=== PATIENT | male | born 2000 | race Hispanic/Latino ===

== ENCOUNTER 2023-09-13 19:20 | Emergency (ER) | payer OTHER, SELFPAY ==
[2023-09-13 19:31] VITALS: BP 139/85; PULSE 112; RESP 20; TEMP 36.8; O2SAT 98; BMI 31.8
--- NOTE | 2023-09-13 19:50 | ED_ITS ---
HPI - Wound/Laceration General Chief Complaint: Wound/Laceration Stated Complaint: rt side to center back pain Time Seen by Provider: 09/13/23 19:23 Source: patient Mode of arrival: Ambulatory History of Present Illness HPI narrative: 23-year-old male with history of pilonidal cyst presents by private vehicle from home for pain surrounding his previous surgical site as well as what he believes is a growing abscess in his buttock. Patient had pilonidal surgery at [facility] in July 2022 as well as a another surgery in December 2022 due to poorly healing suture site. Patient states that he has had pain since his surgery but it became worse over the last 2-3 days. Has also noticed a growing abscess in his left butt cheek over the last 2-3 days. He is concerned that he may have another abscess Related Data Previous Rx's Medication Instructions Recorded doxycycline hyclate 100 mg capsule 100 mg PO BID #14 caps 09/13/23 Allergies Allergy/AdvReac Type Severity Reaction Status Date / Time No Known Drug Allergies Allergy Verified 09/13/23 19:38 Review of Systems Review of Systems Narrative: See HPI Patient History tobacco type: vaping alcohol intake frequency: holidays/special occasions only Substance Use Type: does not use Exam Initial Vital Signs Initial Vital Signs: Vital Signs Temperature 98.3 F 09/13/23 19:31 Pulse Rate 112 H 09/13/23 19:31 Respiratory Rate 20 09/13/23 19:31 Blood Pressure 139/85 09/13/23 19:31 Pulse Oximetry 98 09/13/23 19:31 Oxygen Delivery Method Room Air 09/13/23 19:31 Const: Awake, alert, no acute distress, nontoxic appearing Cardiac: regular rate, regular rhythm RESP: unlabored, clear bilaterally, no wheezing GI: Soft, nontender, nondistended, no rebound, no guarding Back/buttocks: retoucher present, surgical site intact, some overlying induration present. 2 cm fluctuant area on in her left buttock near the gluteal cleft Skin: Warm, Dry, intact, no rashes Neuro: AO x3, CN II-XII grossly intact, moves all extremities Procedures Abscess I/D I&D #1: Side (if applicable): left Sedation/analgesia: other (ativan) Local Anesthetic: lidocaine 1% and with epi Amount of anesthesia used (mL): 5 Technique: incised with #11 blade Packing used?: none Complications: other (No fluid drained, opening sutured closed) Laceration Repair Laceration 1: Site: other (buttock) Side (If applicable): left Size (cm): 2 Description: linear Depth: simple, single layer Local Anesthetic: lidocaine 1% and with epi Skin layer closed with: nylon Skin layer suture size: 4-0 Course Orders Ordered: ED Orders 09/13/23 22:00 CBC Auto Diff [Complete Blood Count AUTO DIFF] Stat CMP [Comprehensive Metabolic Panel] Stat 09/13/23 22:30 CT pelvis w con Stat Discontinued Medications Doxycycline Hyclate (Doxycycline Hyclate 100 Mg Tablet) 100 mg PO NOW ONE Stop: 09/13/23 21:16 Last Admin: 09/13/23 21:23 Dose: 100 mg Documented By: DEMLA Lorazepam (Lorazepam 0.5 Mg Tablet) 2 mg PO NOW ONE Stop: 09/13/23 19:50 Last Admin: 09/13/23 20:05 Dose: 2 mg Documented By: ISSA Oxycodone HCl (Oxycodone Ir 5 Mg Tablet) 5 mg PO NOW ONE Stop: 09/13/23 19:50 Last Admin: 09/13/23 20:05 Dose: 5 mg Documented By: ISSA Vital Signs Vital signs: Vital Signs - 8 hr 09/13/23 19:31 09/13/23 23:00 09/13/23 23:30 Temperature 98.3 F Pulse Rate 112 H 110 H 112 H Respiratory Rate 20 18 18 Blood Pressure 139/85 117/60 124/80 Pulse Oximetry 98 99 100 Oxygen Delivery Method Room Air Room Air Room Air 09/14/23 00:00 Temperature Pulse Rate 114 H Respiratory Rate 18 Blood Pressure 125/82 Pulse Oximetry 100 Oxygen Delivery Method Room Air MDM - Wound/Laceration Differential Diagnosis Differential diagnosis: Likely laceration, abscess and abrasion Lab Data 09/13/23 22:00 09/13/23 22:00 Labs: Lab Results 09/13/23 Range/Units 22:00 WBC 10.6 (4.5-11.0) X10^3/uL RBC 4.79 (4.5-5.9) X10^6/uL Hgb 14.5 (13.5-17.5) g/dL Hct 41.3 (41-53) % MCV 86.3 (80-100) fL MCH 30.3 (26-34) PG MCHC 35.1 (30-36) % RDW 13.7 (11.6-14.8) % Plt Count 200 (150-400) X10^3/uL Neut % (Auto) 75.2 H (50-75) % Lymph % (Auto) 16.5 L (25-40) % [place] % (Auto) 6.5 (3-14) % Eos % (Auto) 1.2 L (2-4) % Baso % (Auto) 0.6 (0-2) % Neut # (Auto) 7900 H (1246-9106) /uL Lymph # (Auto) 1700 (3563-6428) /uL [place] # (Auto) 700 (0-900) /uL Eos # (Auto) 100 (0-450) /uL Baso # (Auto) 100 (0-100) /uL Sodium 138 (137-145) mmol/L Potassium 3.8 (3.4-5.1) mmol/L Chloride 106 (98-107) mmol/L Carbon Dioxide 26 (22-32) mmol/L BUN 15 (9-20) mg/dL Creatinine 0.86 (0.66-1.25) mg/dL Estimated GFR > 60 (>60) mL/min BUN/Creatinine Ratio 17.4 (6-22) Glucose 107 H (70-100) mg/dL Calcium 9.4 (8.4-10.2) mg/dL Total Bilirubin 1.4 H (0.2-1.3) mg/dL AST 47 (17-59) IU/L ALT 101 H (<50) IU/L Alkaline Phosphatase 58 (38-126) U/L Total Protein 8.0 (6.3-8.2) g/dL Albumin 4.4 (3.5-5.0) g/dL Globulin 3.6 (1.7-4.1) g/dL Albumin/Globulin Ratio 1.2 (1.0-2.8) Imaging Data CT scan - abdomen/pelvis: Radiologist's Impression: PROCEDURE: CT PELVIS W CON INDICATIONS: pilonidal incision inflammation TECHNIQUE: After the administration of intravenous contrast, 5 mm thick sections acquired from the iliac crests to the symphysis. 5 mm coronal and sagittal reformats were acquired. For radiation dose reduction, the following was used: automated exposure control, adjustment of mA and/or kV according to patient size. COMPARISON: None. FINDINGS: Image quality: Diagnostic. PELVIS: Bones: No aggressive osseous abnormality. Soft tissues: Focal subcutaneous edema is seen along the inferior left gluteal cleft without a focal fluid collection seen. Separate mild nonspecific subcutaneous edema is seen overlying the sacrum. Intrapelvic soft tissues demonstrate no acute abnormality. IMPRESSION: 1. Focal subcutaneous edema is seen along the left inferior aspect of the gluteal cleft. No focal fluid collection is seen. No acute intrapelvic abnormality. 2. Nonspecific subcutaneous edema or thickening overlying the sacrum. Approved by: Carlo Gordon M.D. on 09/14/2023 at 0:0 MDM Narrative Medical decision making narrative: Abscess and buttocks as well as pain over the patient's previous pilonidal cyst removal site. The sacral incision is clean, dry, intact. There is induration present without fluctuance. There does appear to be a fluctuant mass in the inner left buttock. Plan to incise and drain the lower abscess. Despite feeling fluctuant on exam there was no expression of fluid from the gluteal swelling. There did not appear to be any abscess or cyst present, and the wound was subsequently closed with sutures per procedure note. Despite receiving pain and anxiety medications patient was tachycardic, and so decision made to order laboratory work and CT imaging. Laboratory work significant for WBC count 10.6 normal electrolytes, T bili 1.4. CT of the pelvis with contrast showed edema of the sacrum and gluteal regions without drainable fluid collection. Uncertain why there would be edema present so long after patient's surgeries, however due to the location and nature of patient's symptoms as well as increased pain plan to treat with antibiotics in case this is an early developing infection. First dose of antibiotics given in the emergency department since pharmacies are currently closed. Patient and his were counseled that they would need to follow up with the patient's original surgeon who performed the pilonidal excision. They state that they would call tomorrow for an appointment for further evaluation. ED return precautions discussed at bedside. Patient expressed understanding of the plan and is in agreement at this time. All questions answered at the time of discharge. Note for work provided Discharge Plan Departure Patient Disposition: Home Clinical Impression: Pilonidal cyst Instructions: DI for Pilonidal Cyst Drainage or Removal Activity Restrictions/Additional Instructions: Sutures will need to be removed in 5-7 days. Keep your wound clean and dry. Unfortunately I was not able to find a drainable fluid collection here today, I highly recommend that you follow up with the surgeon who did your original pilonidal surgery if you continue to experience symptoms. I did feel some irritation around your upper suture site. Added precaution a prescription for antibiotics has been sent to the [facility] in [place]. Take this twice daily for 1 week. Prescriptions: New doxycycline hyclate 100 mg capsule 100 mg PO BID Qty: 14 0RF Referrals: Provider,Aditi LAWSON [Primary Care Provider] - Stand Alone Forms: Patient Portal/API, Work Release Note
[2023-09-13] MEDS: OXYCODONE IR 5 MG TABLET PO (20:05)
[2023-09-13] MEDS: LORazepam 0.5 MG TABLET 2 MG PO (20:05)
[2023-09-13] MEDS: DOXYCYCLINE HYCLATE 100 MG TABLET PO (21:23)
--- NOTE | 2023-09-13 22:06 | PC.NURSE ---
checked on patient. patient is snoring in bed. heart rate is 115. provider notified. order for line and labs placed
[2023-09-13 22:07] LABS: Add Manual Diff / Slide Review NO; Basophils Absolute Auto 100 /uL (0-100); Basophils Percent Auto 0.6 % (0-2); Eosinophils Absolute Auto 100 /uL (0-450); Eosinophils Percent Auto 1.2 % (2-4); Hematocrit 41.3 % (41-53); Hemoglobin 14.5 g/dL (13.5-17.5); Lymphocytes Absolute Auto 1700 /uL (1100-4500); Lymphocytes Percent Auto 16.5 % (25-40); Mean Corpuscular HGB Conc 35.1 % (30-36); Mean Corpuscular Hemoglobin 30.3 PG (26-34); Mean Corpuscular Volume 86.3 fL (80-100); Monocytes Absolute Auto 700 /uL (0-900); Monocytes Percent Auto 6.5 % (3-14); Neutrophils Absolute Auto 7900 /uL (1500-7000); Neutrophils Percent Auto 75.2 % (50-75); Platelet Count 200 X10^3/uL (150-400); Red Blood Cell Count 4.79 X10^6/uL (4.5-5.9); Red Cell Distribution Width 13.7 % (11.6-14.8); White Blood Cell Count 10.6 X10^3/uL (4.5-11.0)
[2023-09-13 22:19] LABS: Alanine Aminotransferase 101 IU/L (<50); Albumin 4.4 g/dL (3.5-5.0); Albumin Globulin Ratio 1.2 (1.0-2.8); Alkaline Phosphatase 58 U/L (38-126); Aspartate Aminotransferase 47 IU/L (17-59); BUN Creatinine Ratio 17.4 (6-22); Bilirubin Total 1.4 mg/dL (0.2-1.3); Blood Urea Nitrogen 15 mg/dL (9-20); Calcium 9.4 mg/dL (8.4-10.2); Carbon Dioxide 26 mmol/L (22-32); Chloride 106 mmol/L (98-107); Estimated Glomerular Filt Rate > 60 mL/min (>60); Globulin 3.6 g/dL (1.7-4.1); Glucose 107 mg/dL (70-100); HEMOLYSIS < 15 (0-50); Potassium 3.8 mmol/L (3.4-5.1); Sodium 138 mmol/L (137-145)
--- NOTE | 2023-09-13 22:30 | DI.CT.S_ITS ---
PROCEDURE: CT PELVIS W CON INDICATIONS: pilonidal incision inflammation TECHNIQUE: After the administration of intravenous contrast, 5 mm thick sections acquired from the iliac crests to the symphysis. 5 mm coronal and sagittal reformats were acquired. For radiation dose reduction, the following was used: automated exposure control, adjustment of mA and/or kV according to patient size. COMPARISON: None. FINDINGS: Image quality: Diagnostic. PELVIS: Bones: No aggressive osseous abnormality. Soft tissues: Focal subcutaneous edema is seen along the inferior left gluteal cleft without a focal fluid collection seen. Separate mild nonspecific subcutaneous edema is seen overlying the sacrum. Intrapelvic soft tissues demonstrate no acute abnormality. IMPRESSION: 1. Focal subcutaneous edema is seen along the left inferior aspect of the gluteal cleft. No focal fluid collection is seen. No acute intrapelvic abnormality. 2. Nonspecific subcutaneous edema or thickening overlying the sacrum. Approved by: Carlo Gordon M.D. on 09/14/2023 at 0:01
[2023-09-13 23:00] VITALS: BP 117/60; PULSE 110; RESP 18; O2SAT 99
[2023-09-13 23:30] VITALS: BP 124/80; PULSE 112; RESP 18; O2SAT 100
[2023-09-14] VITALS: BP 125/82; PULSE 114; RESP 18; O2SAT 100
== END 2023-09-14 00:24 | disposition home or self-care (01) ==
PROVIDERS: Emergency Provider Emergency Medicine
DX: L05.01 Pilonidal cyst with abscess (principal); R00.0 Tachycardia, unspecified
CPT/HCPCS: 10060; 12001; 36415; 72193; 80053; 85025; 99283; 99284; Q9967

== ENCOUNTER 2024-02-06 20:45 | Emergency (ER) | payer OTHER, SELFPAY ==
[2024-02-06 20:53] VITALS: BP 134/77; PULSE 50; RESP 16; TEMP 36.9; O2SAT 99; BMI 31.5
--- NOTE | 2024-02-06 21:06 | ED.EYEPROB ---
HPI - Eye Problem General Chief complaint: Eye Problems Stated complaint: visual changes Time Seen by Provider: 02/06/24 20:50 Source: patient Mode of arrival: Ambulatory History of Present Illness HPI Narrative: 23-year-old male with no reported past medical history presents for frontal headache and vision changes. Patient states that it seems like his vision is shaded with different colors. He wears glasses at baseline for nearsightedness, but denies change in his visual acuity that he was aware of. She had 2 ibuprofen prior to arrival with some improvement in patient's headache. Patient states that prior to this he has never really had headaches before and has never had to come to the ER for a headache. Related Data Previous Rx's Medication Instructions Recorded doxycycline hyclate 100 mg capsule 100 mg PO BID #14 caps 09/13/23 Allergies Allergy/AdvReac Type Severity Reaction Status Date / Time No Known Drug Allergies Allergy Verified 09/13/23 19:38 Patient History Social History Smoking Status: Current every day smoker Smoking Status: Current every day smoker tobacco type: vaping alcohol intake frequency: holidays/special occasions only Substance Use Type: does not use Exam Initial Vital Signs Initial Vital Signs: Vital Signs Temperature 98.4 F 02/06/24 20:53 Pulse Rate 50 L 02/06/24 20:53 Respiratory Rate 16 02/06/24 20:53 Blood Pressure 134/77 02/06/24 20:53 Pulse Oximetry 99 02/06/24 20:53 Oxygen Delivery Method Room Air 02/06/24 20:53 Const: Awake, alert, no acute distress, nontoxic appearing Eyes: PERRLA, EOMI, visual acuity intact Cardiac: Bradycardia, regular rhythm RESP: unlabored, speaking in complete sentences without dyspnea Skin: Warm, Dry, intact, no rashes Neuro: AO x3, CN II-XII grossly intact, moves all extremities Course Orders Ordered: ED Orders 02/06/24 21:06 CT head/brain wo con Stat Discontinued Medications Diphenhydramine HCl (Diphenhydramine 50 Mg/Ml Vial) 50 mg IV NOW ONE Stop: 02/06/24 21:07 Last Admin: 02/06/24 21:23 Dose: 50 mg Documented By: JENNA Sodium Chloride (Normal Saline 0.9%) 1,000 mls @ 1,000 mls/hr IV BOLUS ONE Stop: 02/06/24 22:05 Last Infusion: 02/06/24 22:35 Dose: Infused Documented By: Admin: 02/06/24 21:21 Dose: 1,000 mls/hr Documented By: JENNA Ketorolac Tromethamine (Ketorolac 30 Mg/Ml Vial) 15 mg IV NOW ONE Stop: 02/06/24 21:07 Last Admin: 02/06/24 21:21 Dose: 15 mg Documented By: JENNA Metoclopramide HCl (Metoclopramide 10 Mg/2 Ml Inj) 10 mg IV NOW ONE Stop: 02/06/24 21:07 Last Admin: 02/06/24 21:24 Dose: 10 mg Documented By: JENNA Vital Signs Vital signs: Vital Signs - 8 hr 02/06/24 20:53 02/06/24 22:38 Temperature 98.4 F Pulse Rate 50 L 68 Respiratory Rate 16 16 Blood Pressure 134/77 132/62 Pulse Oximetry 99 100 Oxygen Delivery Method Room Air Room Air MDM - Eye Problem Imaging Data CT scan - head: Radiologist's Impression: PROCEDURE: CT HEAD/BRAIN WO CON INDICATIONS: FRONTAL HEADACHE W/VISION CHANGES/NEW PATTERN TECHNIQUE: Noncontrast 4.5 mm thick angled axial sections acquired from the foramen magnum to the vertex, with coronal and sagittal reformats. For radiation dose reduction, the following was used: automated exposure control, adjustment of mA and/or kV according to patient size. COMPARISON: None. FINDINGS: Image quality: Diagnostic. CSF spaces: Basal cisterns are patent. No extra-axial fluid collections. Ventricles are normal in size and shape. Brain: No midline shift. No intracranial masses or hemorrhage. Lara-white matter interface is normal. Skull and face: Calvarium and visualized facial bones are intact, without suspicious lesions. Sinuses: Visualized sinuses and mastoids are clear. IMPRESSION: No acute intracranial pathology. Dictated by: Renato Aleman M.D. on 02/06/2024 at 21:51 Approved by: Renato Aleman M.D. on 02/06/2024 at 21:52 [facility] Narrative Medical decision making narrative: Well-appearing patient with ?colors? over his vision. Patient states that he was still able to see everything, the coloration just seems to change. Exam unremarkable, visual acuity at patient's baseline. Since this is a new headache for the patient and he was never had to come to the ER for a headache before a CT scan of the brain was ordered. Headache cocktail ordered. Headache improved with medications, resting comfortably in bed. CT brain negative for acute findings. Patient counseled that if he continues to have headaches such as this he should take Tylenol, ibuprofen, and highly recommended PCP follow up. Discharge Plan Departure Patient Disposition: Home Clinical Impression: Headache Instructions: DI for Migraine Activity Restrictions/Additional Instructions: Your CT today was normal. I wonder if your symptoms could be caused by something called a ?ocular migraine?, which is a migraine that can affect her vision. Take Tylenol and ibuprofen as needed for symptoms. I do recommend that you follow up with your primary care doctor, especially if you continue to get headaches. Prescriptions: No Action doxycycline hyclate 100 mg capsule 100 mg PO BID Qty: 14 0RF Referrals: ProviderAditi [Primary Care Provider] - Stand Alone Forms: Patient Portal/API, Work Release Note
[2024-02-06] MEDS: KETOROLAC 30 MG/ML VIAL 15 MG IV (21:21)
[2024-02-06] MEDS: SODIUM CHLORIDE 0.9% 1,000 ML 1000 ML IV (21:21)
[2024-02-06] MEDS: diphenhydrAMINE 50 MG/ML VIAL IV (21:23)
[2024-02-06] MEDS: METOCLOPRAMIDE 10 MG/2 ML INJ IV (21:24)
[2024-02-06 22:38] VITALS: BP 132/62; PULSE 68; RESP 16; O2SAT 100
== END 2024-02-06 22:40 | disposition home or self-care (01) ==
PROVIDERS: Emergency Provider Emergency Medicine
DX: R51.9 Headache, unspecified (principal); H53.9 Unspecified visual disturbance
CPT/HCPCS: 70450; 96361; 96374; 96375; 99283; 99284; J1200; J1885; J2765

== ENCOUNTER → 2024-03-25 08:50 | Outpatient (CLI) | payer OTHER, SELFPAY ==
--- NOTE | 2024-03-25 08:52 | DI.MRI.S_ITS ---
PROCEDURE: MR HEAD/BRAIN WO/W CON INDICATIONS: MIGRAINE W AURA TECHNIQUE: Noncontrast axial T1 spin echo, axial T2 fast spin echo, sagittal and axial FLAIR, coronal T2 fast spin echo, axial gradient echo, axial diffusion and ADC through the brain. After the administration of contrast, axial and coronal and sagittal 3D VIBE or T1 spin echo with fat saturation through the brain. COMPARISON: [facility], CT, CT HEAD/BRAIN WO CON, 02/06/2024, 21:09. FINDINGS: Image quality: Diagnostic CSF Spaces: Basal cisterns are patent. No extra-axial fluid collections. Ventricles are normal in size and shape. Brain: No midline shift. No intracranial bleeds or masses. No abnormal intracranial enhancement. The brainstem appears normal. Diffusion-weighted images demonstrate no acute infarct. No chronic ischemic insults. Normal intravascular flow voids are present. Skull and face: Calvarial marrow is normal in signal. Orbits appear normal. Sinuses: Sinuses and mastoids appear clear. IMPRESSION: Normal intracranial study, without a cause of headache identified. No masses or abnormal enhancement can be seen. No abnormal white matter lesions are seen. Dictated by: Lemuel Monsalve M.D. on 03/25/2024 at 9:11 Approved by: Lemuel Monsalve M.D. on 03/25/2024 at 9:13
== END ==
PROVIDERS: Referring Provider Student in an Organized Health Care Education/Training Program; Visit Provider Student in an Organized Health Care Education/Training Program
DX: G43.109 Migraine with aura, not intractable, without status migrainosus (principal)
CPT/HCPCS: 70553; A9579